=== PATIENT | male | born 1945 | race Caucasian/White ===

== ENCOUNTER → 2016-10-06 | Outpatient (CLI) | payer OTHER | LOC: FIMAGING 15:13 | PROVIDERS: ATTEND Neurological Surgery | DX: M54.9 Dorsalgia, unspecified (principal); M43.17 Spondylolisthesis, lumbosacral region; M51.36 Other intervertebral disc degeneration, lumbar region ==

== ENCOUNTER 2016-12-02 05:50 | Inpatient (IN) | payer OTHER ==
[2016-12-02] MEDS ORDERED: LR 1,000 ML IV ONE (06:39)
[2016-12-02] MEDS ORDERED: LIDOCAINE 1% 5 ML SDV ID PRN (06:39)
[2016-12-02] MEDS ORDERED: THROMBIN (BOVINE) 20,000 UNIT VIAL TP ONE (06:42)
[2016-12-02] MEDS ORDERED: BUPIVACAINE 0.5% 30 ML SDV ONE (06:42)
[2016-12-02] MEDS ORDERED: BACITRACIN 50,000 UNITS/10 ML SYR IRR ONE (06:43)
[2016-12-02] MEDS ORDERED: BUPIVACAINE 0.25% 30 ML SDV ONE (06:46)
[2016-12-02] MEDS ORDERED: BUPIVACAINE/EPI 0.25% 30 ML SDV ONE ×2 (06:46→07:05)
[2016-12-02] MEDS ORDERED: CHLORHEXIDINE GLUC HIBICLENS 118 ML BTL TP ONE (07:00)
[2016-12-02] MEDS ORDERED: ceFAZolin 2 GM/DEXTROSE 100 ML IV ONE (07:00)
[2016-12-02] MEDS ORDERED: morphINE PF 5 MG/10 ML INJ IT ONE (07:00)
[2016-12-02] MEDS ORDERED: PROPOFOL/EMULSION 500 MG/50 ML BOTTLE IV ONE ×2 (07:04→10:05)
[2016-12-02] MEDS ORDERED: fentaNYL 100 MCG/2 ML INJ ONE ×4 (07:04→12:32)
[2016-12-02] MEDS ORDERED: REMIFENTANIL HCL 1 MG VIAL ONE ×2 (07:04→10:04)
[2016-12-02] MEDS ORDERED: PROPOFOL 200 MG/20 ML VIAL ONE (07:07)
[2016-12-02] MEDS ORDERED: LIDOCAINE 2% 100 MG/5 ML SYR ONE (07:11)
[2016-12-02] MEDS ORDERED: MIDAZOLAM 2 MG/2 ML VIAL ONE (07:11)
[2016-12-02] MEDS ORDERED: ROCURONIUM 50 MG/5 ML VIAL ONE ×2 (07:12→08:08)
[2016-12-02] MEDS ORDERED: CITRATE DEXTROSE SOLN 500 ML BAG ONE (07:38)
[2016-12-02] MEDS ORDERED: DEXAMETHASONE 4 MG/ML VIAL ONE (08:32)
[2016-12-02] MEDS ORDERED: ONDANSETRON 4 MG/2 ML VIAL ONE (08:32)
[2016-12-02] MEDS ORDERED: HYDROCODONE PO PRN (09:44)
[2016-12-02] MEDS ORDERED: ACETAMINOPHEN PO PRN (09:44)
[2016-12-02] MEDS ORDERED: ALPRAZolam 0.5 MG TAB PO PRN (09:44)
[2016-12-02] MEDS ORDERED: MAGNESIUM HYDROXIDE 30 ML UDCUP PO PRN (09:45)
[2016-12-02] MEDS ORDERED: LACTULOSE 20 GM/30 ML UDCUP PO PRN (09:45)
[2016-12-02] MEDS ORDERED: NS W/ 20 KCl/L 1,000 ML IV SCH (09:45)
[2016-12-02] MEDS ORDERED: DIAZEPAM 10 MG/2 ML SYR IVP PRN (09:45)
[2016-12-02] MEDS ORDERED: diphenhydrAMINE 25 MG CAP PO PRN (09:45)
[2016-12-02] MEDS ORDERED: ONDANSETRON 4 MG/2 ML VIAL IVP PRN (09:45)
[2016-12-02] MEDS ORDERED: ONDANSETRON DISINTEGRATING 4 MG TAB PO PRN (09:45)
[2016-12-02] MEDS ORDERED: BISACODYL 10 MG SUPP PR PRN (09:45)
[2016-12-02] MEDS ORDERED: NIACIN ER 500 MG TAB.ER PO SCH (10:00)
[2016-12-02] MEDS ORDERED: HYDROCODONE/APAP 5/325 TAB PO PRN (10:05)
[2016-12-02] MEDS ORDERED: ceFAZolin 1 GM VIAL ONE (10:07)
[2016-12-02] MEDS ORDERED: HYDROmorphONE/DILAUDID 1 MG/ML SYR ONE (12:11)
[2016-12-02] MEDS ORDERED: DIAZEPAM 10 MG/2 ML SYR ONE (12:32)
--- NOTE | 2016-12-02 12:45 | POSTOPPROG ---
Post Op Note Date of Operation: 12/02/16 Surgeon: Rudy Hill Aquatic Life Laborer: RADHA Almonte PAC Anesthesia: GET(General Endotracheal) Pre-op Diagnosis: lumbar stenosis, spondylolithesis Post-op Diagnosis: lumbar stenosis, spondylolithesis Indication: lumbar stenosis, spondylolithesis Procedure: L5/S1 ALIF/TLIF Findings: L5/S1 ALIF/TLIF Inf/Abcess present in the surg proc area at time of surgery?: No EBL: Minimal PA Addendum - Addendum .: S: low back pain O: NAD A&Ox3 MAEx4 5/5 and equal in BUE and BLE. Incision c/d/i A/P 71 y/o M L5/S1 ALIF and percutaneous L5/S1 PSF -PT/OT -Post op xrays pending -DVT prophx: TEDs, SCDs, Lovenox okay POD1 -CLD, advance diet per general surgery -Optimize pain management -Please notify NS with any change in neuro/motor exam
--- NOTE | 2016-12-02 13:11 | GOP ---
[f rep st] OPERATIVE REPORT DATE OF OPERATION: 12/02/2016 SURGEON: Rudy Hill MD DECORATING KILN OPERATOR: Irma Almonte, KAITA. ANESTHESIA: General. PREOPERATIVE DIAGNOSIS: 1. Grade 2 spondylolisthesis, L5-S1, with bilateral pars defects. 2. Lower extremity radiculopathy. 3. Low back pain. 4. Treatment refractory to nonoperative intervention. POSTOPERATIVE DIAGNOSIS: 1. Grade 2 spondylolisthesis, L5-S1, with bilateral pars defects. 2. Lower extremity radiculopathy. 3. Low back pain. 4. Treatment refractory to nonoperative intervention. PROCEDURE PERFORMED: 1. Posterior percutaneous pedicle screw fixation of L5 and S1 from the [employer] Sextant 4.75 system. 2. Use of intraoperative 3D Stealth navigation. 3. Use of intraoperative fluoroscopy, less than 1 hour physician time. 4. Use of neuromonitoring. FINDINGS: per imaging SPECIMENS: None. ESTIMATED BLOOD LOSS: 10 mL. INDICATIONS: The patient is a 71-year-old gentleman, who unfortunately suffers from lower extremity radiculopathy with some back pain. He has evidence of grade 2 spondylolisthesis with bilateral pars defects, L5-S1. After failing nonoperative intervention, and after discussion of risks, benefits, and alternatives, we decided to proceed forth with the surgery as described above. Please note, this is stage II of a planned 2-stage surgical procedure. Stage I was completed as an anterior lumbar interbody fusion completed on the same day and dictated in a separate operative report. DESCRIPTION OF PROCEDURE: Patient was still asleep from the completion of stage I of his anterior abdominal approach. At this point, he was flipped prone onto the Sebastien table, and all bony prominences were inspected and padded. The lower lumbar region was prepped and draped in the usual sterile surgical fashion. Another time-out was completed per protocol. The patient received antibiotics within 1 hour of incision. The left posterior superior iliac spine was identified and the small percutaneous pin for the 3D navigation system then placed into the left PSIS. The 3D Stealth navigation system was brought into the field and we completed a 3D Stealth navigation spin. Using 3D Stealth navigation, we used the stealth navigated awl-tip tap to place the jet pilot holes into the bilateral L5 and S1 pedicles, which were cannulated. We then placed 5.5 x 45 mm screws bilaterally at L5, and 6.5 x 50 mm screws bilaterally in S1 from the [employer] Sextant 4.75 system. Another 3D Stealth navigation spin demonstrated good placement of the hardware. We passed two 35 mm rods percutaneously into the heads of the screws between L5 and S1 bilaterally and secured them down with cap screws which were tightened per the livery car driver's setting. AP and lateral x-rays demonstrated good placement of the hardware. There were no noted changes on neuromonitoring throughout the procedure. The patient was flipped supine onto the transport cart, where he was awakened, extubated, and taken to the recovery room in stable condition. There were no complications. COMPLICATIONS: None. /[id number]/MODL MTDD
--- NOTE | 2016-12-02 13:31 | GOP ---
[f rep st] OPERATIVE REPORT DATE OF OPERATION: 12/02/2016 SURGEON: Rudy Hill MD ANESTHESIA: General. PREOPERATIVE DIAGNOSIS: 1. Grade 2 spondylolisthesis L5-S1 with bilateral pars defects. 2. Lower extremity radiculopathy. 3. Treatment refractory to nonoperative intervention. POSTOPERATIVE DIAGNOSIS: 1. Grade 2 spondylolisthesis L5-S1 with bilateral pars defects. 2. Lower extremity radiculopathy. 3. Treatment refractory to nonoperative intervention. PROCEDURE PERFORMED: 1. Anterior arthrodesis with approach to L5-S1. 2. L5-S1 discectomy and interbody fusion using a 14 x 30 x 24 mm, 12 degree perimeter PEEK cage wit h morselized autograft. 3. Anterior lumbar fusion L5-S1 with a large Pivox plate from [employer] with 1 screw into L5 and 1 screw in S1. 4. Use of intraoperative fluoroscopy, less than 1 hour physician time. 5. Use of neuromonitoring. FINDINGS: SPECIMENS: None. ESTIMATED BLOOD LOSS: 15 mL. INDICATIONS: The patient is a very pleasant, 71-year-old gentleman, who unfortunately has been suff ering from lower extremity radiculopathy and some back pain. He had evidence of a grade 2 spondylol isthesis of L5 on S1 with a bilateral pars defect. After failing nonoperative intervention and afte r discussion of the risks, benefits, and treatment alternatives, we decided to proceed forth with ladan hylton as described above. Please note, this is stage 1 of a planned 2-stage surgical procedure. St age 2 will be dictated in a separate operative report and is the posterior spinal fusion. DESCRIPTION OF PROCEDURE: The patient was brought to the operating theater and underwent general en dotracheal anesthesia without complications. Venodyne's, TIANA hose, and appropriate lines were place d by Anesthesia. He was maintained supine on the operating table with his arms extended on the arm boards. All bony processes were inspected and padded. The lower abdomen was then marked by Dr. Isrrael langston' team, giving us the best access to the L5-S1 level. At this point, Dr. Partida will dictate in a separate operative report the anterior abdominal exposure to L5-S1. Our team was then called in. W e confirmed all the levels using lateral fluoroscopy. At this point, we completed an L5-S1 diskecto my and completed a continued distraction of the L5-S1 space to approximately 14 mm. We then prepare d the cartilaginous endplates and measured the interbody space. We placed a 14 x 30 x 24 mm, 12 deg ree perimeter PEEK cage with morselized autograft into the L5-S1 disk space. We then secured a larg e [employer] Pivox plate into the L5 and S1 vertebral bodies. AP and lateral x-rays demonstrated exc ellent placement of the hardware. There were no changes under monitoring. At this point, Dr. Partida ' team will dictate in a separate operative report the abdominal closure. The patient was stable at the completion of this portion of the surgery. CO-SURGEON: Dr. Partida. INSTRUCTIONAL DESIGN SPECIALIST: Irma Almonte PA-C. COMPLICATIONS: None. /[id number]/MODL
--- NOTE | 2016-12-02 13:55 | GOP ---
[f rep st] OPERATIVE REPORT DATE OF OPERATION: 12/02/2016 SURGEON: Pradeep Partida MD LOADING RACK SUPERVISOR: BRANDON Roger. ANESTHESIOLOGIST: Dr. Odonnell. PREOPERATIVE DIAGNOSIS: Spinal instability. POSTOPERATIVE DIAGNOSIS: Spinal instability. PROCEDURE PERFORMED: Anterior exposure L5-S1 for anterior spinal fusion. FINDINGS: significant s[pmdolithesis L5- S1 DESCRIPTION OF PROCEDURE: Patient taken to the operating room, received satisfactory general endotracheal anesthesia by Dr. Odonnell. He was prepped and draped in usual sterile fashion in the supine position. A low Pfannenstiel type incision was made and carried down through the subcutaneous tissue. The rectus fascia was incised. Rectus flaps were elevated above and below the incision from the rectus muscles. The midline was opened between the rectus muscles and the abdomen was entered. Small bowel was packed away. The sacral prominence was identified and the peritoneum over the prominence was opened and incised. The sacral vessels were multiply hemoclipped and divided. Then the L5 -S1 joint was identified. It was exposed extensively laterally above and below. Retraction of the iliac vessels was done with the Omni retractor. After adequate exposure was achieved, the case was turned over to Dr. Hill for anterior fusion. After completion of that, we returned for wound closure. Peritoneum was closed with a running 0 Vicryl suture over the retroperitoneum. The abdominal wall peritoneal layer was closed with a running 0 Vicryl suture and then the fascia was closed with a running #1 PDS suture. The subcu was closed with 3-0 Vicryl and the skin with a 3-0 Monoderm Quill suture. He tolerated the procedure well. Blood loss from our portion of the procedure was negligible. There were no complications. /[id number]/MODL MTDD
[2016-12-02] MEDS: oxyCODONE IR 5 MG TAB PO PRN ×3 (14:53→22:57)
[2016-12-02] MEDS: ACETAMINOPHEN 325 MG TAB PO PRN ×2 (14:54→21:41)
[2016-12-02] MEDS ORDERED: FAMOTIDINE 20 MG/NACL 50 ML IV SCH (21:00)
[2016-12-02] MEDS: SENNOSIDES/DOCUSATE SODIUM TAB PO SCH (21:42)
[2016-12-02] MEDS: DIAZEPAM 5 MG TAB PO PRN (21:43)
[2016-12-02] MEDS: FAMOTIDINE 20 MG TAB PO SCH (21:45)
[2016-12-03] MEDS: traMADol 50 MG TAB PO PRN ×4 (01:47→17:37)
[2016-12-03] MEDS: oxyCODONE IR 5 MG TAB PO PRN ×4 (02:50→18:14)
[2016-12-03] MEDS: DIAZEPAM 5 MG TAB PO PRN ×2 (02:51→21:45)
--- NOTE | 2016-12-03 07:30 | NEUSURGPN ---
Date of Surgery: 12/02/16 Post Op Day: 1 Assessment/Plan: Assessment: 71 y/o M that is s/p L5/S1 ALIF and percutaneous L5/S1 PSF POD #1 Plan: -s/p ALIF and PSF at L5/S1: pt with expected lower back pain and abd pain as well -passing gas -pt with more abd pain than back pain -PT/OT-CPM -Post op xrays pending -will try IV dilaudid and VAN CDL DRIVER requested from RN/Pt -DVT prophx: TEDs, SCDs, Lovenox okay POD1 -CLD, advance diet per general surgery -Optimize pain management -Please notify NS with any change in neuro/motor exam Subjective: Awake and alert. NAD. Eating and drinking. Voiding. No f/c/n/v/d. No campos/cp/ sob/gu complaints. Pt with expected lower back and abd pain. Objective: AAO x 3, PERRLA/EOMI no droop CN 2-12 grossly intact +lt touch 5/5 BUE/BLE = CDI x 2 Neuro Check Frequency: per routine Catheter Insertion Date: 12/02/16 - Physician Discussed Patient with : Sergio Neurosurgery Physical Exam - Vitals, I&O, Labs I and O 12/02/16 12/03/16 12/04/16 05:59 05:59 05:59 Intake Total 2500 Output Total 1225 Balance 1275 Weight 70.76 kg Intake: Oral (ml) 300 IV Intake (ml) 1800 IV Infused (ml) 400 NS W/ 20 KCl/L 1,000 ml @ 350 75 mls/hr IV CONT MARIA DE JESUS Rx #:[id number] ceFAZolin 1 GM/DEXTROSE 50 50 ml @ 200 mls/hr IV Q8HRS MARIA DE JESUS Rx#:[id number] Output: Urine (ml) 1200 Catheter 1200 Estimated Blood Loss (ml) 25 Vital Signs Temp Pulse Resp BP Pulse Ox 36.4 C 73 16 134/75 H 100 12/03/16 04:45 12/03/16 04:45 12/03/16 04:45 12/03/16 04:45 12/03/16 04:45 ICD10 Worksheet Patient Problems: Problems Problem Status Onset Arthrodesis status Acute Lumbar stenosis Acute - ICD10 Problem Qualifiers (1) Lumbar stenosis (2) Arthrodesis status
[2016-12-03] MEDS ORDERED: HYDROmorphONE/DILAUDID 1 MG/ML SYR IVP PRN (07:31)
[2016-12-03] MEDS ORDERED: HYDROmorphONE/DILAUDID 6 MG/30 ML PCA IV PRN (07:32)
[2016-12-03] MEDS ORDERED: HYDROmorphONE/DILAUDID 2 MG TAB PO PRN (07:32)
[2016-12-03] MEDS ORDERED: NALOXONE HCL 0.4 MG/ML INJ IVP PRN (07:32)
[2016-12-03] MEDS: ACETAMINOPHEN 325 MG TAB PO PRN ×2 (08:08→15:57)
[2016-12-03] MEDS: METHOCARBAMOL 750 MG TAB PO PRN ×2 (08:08→15:57)
[2016-12-03] MEDS ORDERED: NON-FORMULARY NEW DRUG (Nebivolol Hcl [Bystolic] 2.5 MG) PO SCH (09:00)
[2016-12-03] MEDS: ATORVASTATIN CALCIUM 20 MG TAB PO SCH (09:48)
[2016-12-03] MEDS: FAMOTIDINE 20 MG TAB PO SCH ×3 (09:48→21:45)
[2016-12-03] MEDS: LISINOPRIL 2.5 MG TAB PO SCH (09:48)
[2016-12-03] MEDS: NEBIVOLOL HCL 5 MG TAB PO SCH (09:48)
[2016-12-03] MEDS: VITAMIN B COMPLEX 1 EA CAP/TAB PO SCH (09:49)
[2016-12-03] MEDS: SENNOSIDES/DOCUSATE SODIUM TAB PO SCH ×2 (09:49→20:28)
[2016-12-03] MEDS: CARISOPRODOL PO SCH (10:50)
[2016-12-03] MEDS: ENOXAPARIN 40 MG/0.4 ML SYR SC SCH (13:30)
[2016-12-03] MEDS: POLYETHYLENE GLYCOL 3350 17 GM PKT PO PRN ×2 (17:37→21:45)
[2016-12-04] MEDS ORDERED: HYDROmorphONE/DILAUDID 2 MG TAB PO PRN (09:38)
[2016-12-04] MEDS: ATORVASTATIN CALCIUM 20 MG TAB PO SCH (10:20)
[2016-12-04] MEDS: CARISOPRODOL PO SCH (10:20)
[2016-12-04] MEDS: ENOXAPARIN 40 MG/0.4 ML SYR SC SCH (10:21)
[2016-12-04] MEDS: FAMOTIDINE 20 MG TAB PO SCH ×2 (10:21→21:13)
[2016-12-04] MEDS: SENNOSIDES/DOCUSATE SODIUM TAB PO SCH ×2 (10:21→21:13)
[2016-12-04] MEDS: VITAMIN B COMPLEX 1 EA CAP/TAB PO SCH (10:21)
[2016-12-04] MEDS: METHOCARBAMOL 750 MG TAB PO PRN ×3 (10:22→23:55)
[2016-12-04] MEDS: ACETAMINOPHEN 325 MG TAB PO PRN ×3 (10:22→23:54)
[2016-12-04] MEDS: NEBIVOLOL HCL 5 MG TAB PO SCH (10:23)
[2016-12-04] MEDS: LISINOPRIL 2.5 MG TAB PO SCH (10:23)
[2016-12-04] MEDS: oxyCODONE IR 5 MG TAB PO PRN ×3 (13:36→23:16)
--- NOTE | 2016-12-04 14:35 | NEUSURGPN ---
Assessment/Plan: Assessment: 71 y/o M that is s/p L5/S1 ALIF and percutaneous L5/S1 PSF POD #2 Plan: -s/p ALIF and PSF at L5/S1: pt with expected lower back pain and abd pain as well- complaining mostly of abdominal pain. -HAd Bowel movement this morning and gen surg has advanced diet -PT/OT-CPM -Post op xrays show good hardware placement -will try and get off of RUBBING BED OPERATOR and try oral dilaudid instead -DVT prophx: TEDs, SCDs, Lovenox -Diet per gen surg -Please notify NS with any change in neuro/motor exam -Dispo planning- Mon vs tues once pain controlled and clears therapies Subjective: Patient states he has more abdominal pain than back pain still. Pain better controlled over night with RUBBING BED OPERATOR/dilaudid. Had +BM this morning. Leg pain from prior to surgery is better. Numbness improved. Objective: AAO x 3, PERRLA/EOMI CN 2-12 grossly intact +lt touch 5/5 BUE/BLE = CDI x 2 Catheter Insertion Date: 12/02/16 - Physician Discussed Patient with : Sergio Neurosurgery Physical Exam - Vitals, I&O, Labs I and O 12/03/16 12/04/16 12/05/16 05:59 05:59 05:59 Intake Total 2500 1375 750 Output Total 1225 600 100 Balance 1275 775 650 Weight 70.76 kg Intake: Oral (ml) 300 1375 750 IV Intake (ml) 1800 IV Infused (ml) 400 NS W/ 20 KCl/L 1,000 ml @ 350 75 mls/hr IV CONT MARIA DE JESUS Rx #:[id number] ceFAZolin 1 GM/DEXTROSE 50 50 ml @ 200 mls/hr IV Q8HRS MARIA DE JESUS Rx#:[id number] Output: Urine (ml) 1200 600 100 Bedside Commode 300 Catheter 1200 Toilet 100 Urinal 300 Estimated Blood Loss (ml) 25 Other: Intake Quantity Yes Sufficient Number of Voids Bedside Commode 1 Toilet 1 Urinal 1 Number of Stools Toilet 2 Vital Signs Temp Pulse Resp BP Pulse Ox 36.8 C 78 14 113/71 93 12/04/16 11:23 12/04/16 11:23 12/04/16 11:23 12/04/16 11:23 12/04/16 11:23 ICD10 Worksheet Patient Problems: Problems Problem Status Onset Arthrodesis status Acute Lumbar stenosis Acute
[2016-12-04] MEDS: DIAZEPAM 5 MG TAB PO PRN (21:12)
[2016-12-05] MEDS: oxyCODONE IR 5 MG TAB PO PRN ×4 (03:30→22:48)
[2016-12-05] MEDS: ACETAMINOPHEN 325 MG TAB PO PRN ×2 (05:51→19:10)
[2016-12-05] MEDS: METHOCARBAMOL 750 MG TAB PO PRN ×2 (05:52→13:55)
--- NOTE | 2016-12-05 07:49 | NEUSURGPN ---
Assessment/Plan: Assessment: 71 y/o M that is s/p L5/S1 ALIF and percutaneous L5/S1 PSF POD #3 Plan: -s/p ALIF and PSF at L5/S1: pt with expected lower back pain and abd pain as well- complaining mostly of abdominal pain. Had a lot of abdominal pain overnight. -Has had bowel movement and gen surg has advanced diet -PT/OT-CPM -Post op xrays show good hardware placement -Pain management- cont current regimen -DVT prophx: TEDs, SCDs, Lovenox -Diet per gen surg -Please notify NS with any change in neuro/motor exam -Dispo planning- Today vs tomorrow once pain controlled and clears therapies Subjective: Pt resting in bed, c/o abdominal pain overnight that was severe. Concerned about going home today and having problems overnight. Objective: AAOx3 NAD VSS MAEx4 Motor 5/5 BLE abdominal and posterior lumbar incisions cdi +LT Urinary Catheter in Place: No Catheter Insertion Date: 12/02/16 - Physician Discussed Patient with : Sergio Patient Seen by : Sergio Neurosurgery Physical Exam - Vitals, I&O, Labs I and O 12/04/16 12/05/16 12/06/16 05:59 05:59 05:59 Intake Total 1375 1830 Output Total 600 500 Balance 775 1330 Intake: Oral (ml) 1375 1830 Output: Urine (ml) 600 500 Bedside Commode 300 Toilet 500 Urinal 300 Other: Intake Quantity Yes Yes Sufficient Number of Voids Bedside Commode 1 Toilet 2 Urinal 1 Number of Stools Toilet 2 Vital Signs Temp Pulse Resp BP Pulse Ox 36.9 C 81 12 129/72 H 90 L 12/05/16 07:44 12/05/16 07:44 12/05/16 07:44 12/05/16 07:44 12/05/16 07:44 ICD10 Worksheet Patient Problems: Problems Problem Status Onset Arthrodesis status Acute Lumbar stenosis Acute
[2016-12-05] MEDS: ENOXAPARIN 40 MG/0.4 ML SYR SC SCH (09:55)
[2016-12-05] MEDS: ATORVASTATIN CALCIUM 20 MG TAB PO SCH (09:55)
[2016-12-05] MEDS: VITAMIN B COMPLEX 1 EA CAP/TAB PO SCH ×2 (09:56→10:01)
[2016-12-05] MEDS: LISINOPRIL 2.5 MG TAB PO SCH (09:56)
[2016-12-05] MEDS: NEBIVOLOL HCL 5 MG TAB PO SCH (09:56)
[2016-12-05] MEDS: CARISOPRODOL PO SCH (09:56)
[2016-12-05] MEDS: FAMOTIDINE 20 MG TAB PO SCH (09:56)
[2016-12-05] MEDS: SENNOSIDES/DOCUSATE SODIUM TAB PO SCH (09:57)
[2016-12-05 16:38] LABS: HEMATOCRIT 31.2 % (40.0-51.0); HEMOGLOBIN 11.3 g/dL (13.7-17.5); MEAN CELL HEMOGLOBIN 31.1 pg (27.9-34.1); MEAN CELL HEMOGLOBIN CONCENTR. 36.2 g/dL (32.4-36.7); RED BLOOD CELL COUNT 3.63 10^6/uL (4.40-6.38); RED CELL DISTRIBUTION WIDTH 11.7 % (11.5-15.2)
[2016-12-05 18:02] LABS: ANION GAP 5 mEq/L (8-16); CALCIUM 8.2 mg/dL (8.5-10.4); CARBON DIOXIDE 25 mEq/l (22-31); CHLORIDE 95 mEq/L (97-110); CREATININE 0.6 mg/dL (0.7-1.3); GLOMERULAR FILTRATION RATE > 60; GLUCOSE 124 mg/dL (70-100); POTASSIUM 4.6 mEq/L (3.5-5.2); SODIUM 125 mEq/L (134-144)
[2016-12-05] MEDS: DIAZEPAM 5 MG TAB PO PRN (20:43)
[2016-12-05] MEDS: morphINE SR 15 MG TAB PO SCH (20:44)
[2016-12-06] MEDS: METHOCARBAMOL 750 MG TAB PO PRN (02:26)
[2016-12-06] MEDS: ACETAMINOPHEN 325 MG TAB PO PRN ×4 (02:26→16:42)
[2016-12-06] MEDS: FAMOTIDINE 20 MG TAB PO SCH ×3 (02:27→20:26)
[2016-12-06] MEDS: SENNOSIDES/DOCUSATE SODIUM TAB PO SCH ×3 (04:50→21:21)
[2016-12-06] MEDS: oxyCODONE IR 5 MG TAB PO PRN ×3 (06:11→16:43)
--- NOTE | 2016-12-06 07:18 | NEUSURGPN ---
Assessment/Plan: Assessment: 71 y/o M that is s/p L5/S1 ALIF and percutaneous L5/S1 PSF POD #4 Plan: -s/p ALIF and PSF at L5/S1: pt with expected lower back pain and abd pain as well- complaining mostly of abdominal pain. Not eating much, not a lot of solid stool with BMs. -Has had bowel movement and gen surg has advanced diet -PT/OT-CPM -Post op xrays show good hardware placement -Pain management- cont current regimen, doing better with MS contin added before bed -Na 125 - free water restricted, encourage gatorade etc. Salt tabs added. Re- check at noon. -DVT prophx: TEDs, SCDs, Lovenox -Diet per gen surg -Please notify NS with any change in neuro/motor exam -Dispo planning- Today vs tomorrow once eating better and Na improved. Subjective: Pt resting in bed, states he has no appetite. Was able to sleep well overnight. Objective: AAOx3 NAD VSS MAEx4 Motor 5/5 BLE A/P incisions dressed cdi +LT Urinary Catheter in Place: No Catheter Insertion Date: 12/02/16 - Physician Discussed Patient with : Sergio Neurosurgery Physical Exam - Vitals, I&O, Labs I and O 12/05/16 12/06/16 12/07/16 05:59 05:59 05:59 Intake Total 1830 1250 Output Total 500 1550 Balance 1330 -300 Intake: Oral (ml) 1830 1250 Output: Urine (ml) 500 1550 Toilet 500 1350 Urinal 200 Other: Intake Quantity Yes Sufficient Number of Voids Toilet 2 2 Urinal 1 Number of Stools Toilet 2 1 Vital Signs Temp Pulse Resp BP Pulse Ox 36.9 C 71 16 96/58 L 91 L 12/05/16 23:49 12/05/16 23:49 12/05/16 23:49 12/05/16 23:49 12/05/16 23:49 Laboratory Results 12/05/16 16:30 12/05/16 16:30 ICD10 Worksheet Patient Problems: Problems Problem Status Onset Arthrodesis status Acute Lumbar stenosis Acute
[2016-12-06] MEDS: ATORVASTATIN CALCIUM 20 MG TAB PO SCH (09:16)
[2016-12-06] MEDS: NEBIVOLOL HCL 5 MG TAB PO SCH (09:17)
[2016-12-06] MEDS: LISINOPRIL 2.5 MG TAB PO SCH (09:26)
[2016-12-06] MEDS: CARISOPRODOL PO SCH (09:33)
[2016-12-06] MEDS: VITAMIN B COMPLEX 1 EA CAP/TAB PO SCH (09:36)
[2016-12-06] MEDS: SODIUM CHLORIDE 1,000 MG TAB PO SCH ×2 (10:37→19:21)
[2016-12-06] MEDS: ENOXAPARIN 40 MG/0.4 ML SYR SC SCH (10:37)
[2016-12-06] MEDS: POLYETHYLENE GLYCOL 3350 17 GM PKT PO PRN (12:52)
--- NOTE | 2016-12-06 14:12 | SOAPPROG ---
SOAP Progress Note Assessment/Plan: Assessment/Plan: 71 Y M s/p abdominal exposure for anterior spine surgery. POD# 4. Bowel protocol already ordered. Recommend that he get miralax today. Also, fleets enema which patient is amenable to. Seen and examined with Dr. Partida. S: c/o constipation. Had two very small pieces of stool. Had some soft fecal drainage but denies diarrhea. O: gen: alert, nad abd: soft, inc cdi, no erythema. 12/06/16 14:09 Objective: Vital Signs Temp Pulse Resp BP Pulse Ox 36.7 C 93 14 104/71 92 12/06/16 07:42 12/06/16 09:17 12/06/16 07:42 12/06/16 09:17 12/06/16 07:42 Laboratory Results 12/05/16 16:30 12/06/16 12:12 12/05/16 12/06/16 12/07/16 05:59 05:59 05:59 Intake Total 1830 1250 Output Total 500 1550 Balance 1330 -300 ICD10 Worksheet Patient Problems: Problems Problem Status Onset Arthrodesis status Acute Lumbar stenosis Acute
[2016-12-06] MEDS: morphINE SR 15 MG TAB PO SCH (20:21)
[2016-12-07] MEDS: METHOCARBAMOL 750 MG TAB PO PRN (03:01)
[2016-12-07] MEDS: oxyCODONE IR 5 MG TAB PO PRN ×2 (03:01→07:57)
[2016-12-07] MEDS ORDERED: PREPARATION H 51 GM CRTUBE PR PRN (05:55)
[2016-12-07 07:22] VITALS: RESP 15; TEMP 98.1; O2SAT 96
[2016-12-07] MEDS: SENNOSIDES/DOCUSATE SODIUM TAB PO SCH (07:57)
[2016-12-07] MEDS: VITAMIN B COMPLEX 1 EA CAP/TAB PO SCH (07:57)
[2016-12-07] MEDS: ENOXAPARIN 40 MG/0.4 ML SYR SC SCH (07:57)
[2016-12-07] MEDS: LISINOPRIL 2.5 MG TAB PO SCH (07:57)
[2016-12-07] MEDS: SODIUM CHLORIDE 1,000 MG TAB PO SCH (07:57)
--- NOTE | 2016-12-07 07:57 | SOAPPROG ---
SOAP Progress Note Assessment/Plan: Assessment: Hyponatremia to 125 (now 133) in the setting of lumbar fusion requiring free water restriction, salt tabs & repeat lab draws. 71 y/o M that is s/p L5/S1 ALIF and percutaneous L5/S1 PSF POD #5 Plan: -s/p ALIF and PSF at L5/S1: pt with expected lower back pain and abd pain as well- complaining mostly of abdominal pain. Not eating much, not a lot of solid stool with BMs. -Has had bowel movement and gen surg has advanced diet -PT/OT-CPM -Post op xrays show good hardware placement -Pain management- cont current regimen, doing better with MS contin added before bed -Na 133 - free water restricted, encourage gatorade etc. Salt tabs added. -DVT prophx: TEDs, SCDs, Lovenox -Diet per gen surg -Please notify NS with any change in neuro/motor exam -Dispo planning Subjective: Subjective: out of bed, pain well controlled. feeling better today. Small BM this AM Objective: AAOx3 NAD VSS MAEx4 Motor 5/5 BLE A/P incisions dressed cdi +LT Objective: Vital Signs Temp Pulse Resp BP Pulse Ox 36.7 C 76 15 116/66 96 12/07/16 07:18 12/07/16 07:18 12/07/16 07:18 12/07/16 07:18 12/07/16 07:18 Laboratory Results 12/05/16 16:30 12/06/16 12:12 12/06/16 12/07/16 12/08/16 05:59 05:59 05:59 Intake Total 1250 1000 Output Total 1550 Balance -300 1000 ICD10 Worksheet Patient Problems: Problems Problem Status Onset Arthrodesis status Acute Lumbar stenosis Acute
[2016-12-07] MEDS: FAMOTIDINE 20 MG TAB PO SCH (07:58)
[2016-12-07] MEDS: NEBIVOLOL HCL 5 MG TAB PO SCH (07:58)
[2016-12-07] MEDS: ATORVASTATIN CALCIUM 20 MG TAB PO SCH (08:00)
[2016-12-07 08:05] VITALS: BP 134/73; PULSE 82
[2016-12-07] MEDS: CARISOPRODOL PO SCH (08:53)
[2016-12-07] MEDS: ACETAMINOPHEN 325 MG TAB PO PRN (09:14)
== END 2016-12-07 10:56 | disposition home or self-care (01) | DRG 460 ==
LOC: F3N 05:50
PROVIDERS: ADMIT Neurological Surgery; ATTEND Neurological Surgery
DX: M43.17 Spondylolisthesis, lumbosacral region (principal); M54.17 Radiculopathy, lumbosacral region; E87.1 Hypo-osmolality and hyponatremia; K59.00 Constipation, unspecified; I10 Essential (primary) hypertension; I25.10 Atherosclerotic heart disease of native coronary artery without angina pectoris; Z95.5 Presence of coronary angioplasty implant and graft
CPT/HCPCS: 97116-GP; 97161-GP; 97165-GO; 97530-GP; 97535-GO; C1713; C1762; C1769; G8978-GP-CK; G8979-GP-CI; G8980-GP-CI; G8987-GO-CJ; G8988-GO-CI; J0690; J1100; J1170; J1650; J2001; J2250; J2405; J2704; J3010; J7060

== ENCOUNTER 2017-01-01 13:12 | Inpatient (IN) | payer OTHER ==
--- NOTE | 2017-01-01 14:21 | EDPHY ---
H & P Time Seen by Provider: 01/01/17 14:18 HPI/ROS: CHIEF COMPLAINT: Bleeding from surgical site. HISTORY OF PRESENT ILLNESS: The patient is a 71-year-old male that had a spinal fusion L5-S1 with anterior exposure performed 12/02/16, who presents with bleeding from the abdominal surgical site. The patient states he developed a fever once, about 1 week ago. Over the past week the wound has become erythematous. 2 days ago the site began to swell. This morning while sitting at the table, the wound began to bleed. The patient spoke to the Neurosurgeon PA for concern of infection. He denies fever. REVIEW OF SYSTEMS: A comprehensive 10 point review of systems is otherwise negative aside from elements mentioned in the history of present illness. Past Medical/Surgical History: Hypertension, Hyperlipidemia, Anxiety PSH: Spinal fusion 12/02/16, Cardiac stents x6, Ablation Social History: Lives at home alone. Has 3 sons that live in the area. Smoking Status: Never smoked Physical Exam: General Appearance: Alert, pleasant Eyes: Pupils equal and round, no conjunctival pallor or injection ENT, Mouth: Mucous membranes moist Neck: Normal inspection Respiratory: Lungs are clear to auscultation Cardiovascular: Regular rate and rhythm Gastrointestinal: [id number] area of firm swelling over the surgical incision with surrounding erythema. Neurological: A&O, nonfocal, normal gait Skin: Warm and dry, no rash Extremities: Nontender, no pedal edema Psychiatric: Mood and affect normal Constitutional: Initial Vital Signs Temperature (C) 36.8 C 01/01/17 13:28 Heart Rate 85 01/01/17 13:28 Respiratory Rate 16 01/01/17 13:28 Blood Pressure 116/66 01/01/17 13:28 O2 Sat (%) 95 01/01/17 13:28 O2 Delivery Mode Room Air Allergies/Adverse Reactions: No Known Allergies Allergy (Verified 01/01/17 13:26) Home Medications: Medication Instructions Recorded Atorvastatin Calcium [Lipitor 20 20 mg PO DAILY 11/03/16 mg (*)] Lisinopril [Zestril 2.5 mg (*)] 2.5 mg PO DAILY 11/03/16 Vitamin B Complex [B Complex] 1 each PO DAILY 11/03/16 oxyCODONE IR [Oxycodone Ir (*)] 5 - 10 mg PO Q4HRS PRN #90 tab 12/06/16 Bystolic 01/01/17 Lipitor 01/01/17 Medical Decision Making ED Course/Re-evaluation: Patient with spinal fusion L5S1 with anterior exposure 12/02/16 presents with a large and possibly infected hematoma to the surgical site. Dr. Amos castaneda. 1445: Dr. Lerma, General surgery is in the ED evaluating the patient. I and D performed by Dr. Trinidad. Ancef 1 g IV given. Patient will be admitted to [facility] for observation. Differential Diagnosis: Differential diagnosis includes though it is not limited to appendicitis, cholecystitis, diverticulitis, pyelonephritis, bowel perforation, small bowel obstruction. - Data Points Medications Given: Discontinued Medications Cefazolin Sodium/Dextrose (Ancef 1 Gm (Premix)) 50 mls @ 200 mls/hr IV EDNOW ONE PRN Reason: Protocol Stop: 01/01/17 14:48 Last Admin: 01/01/17 15:10 Dose: 50 mls Morphine Sulfate (Morphine) 4 mg IVP EDNOW ONE Stop: 01/01/17 15:11 Last Admin: 01/01/17 15:13 Dose: 4 mg Departure - Departure Disposition: [facility] Inpatient Acute Clinical Impression: Postoperative wound hematoma Condition: Fair Referrals: Elisabeth Pickens MD [Primary Care Provider] - As per Instructions Report Scribed for: Marizol Romero Report Scribed by: Vanesa العلي Date of Report: 01/01/17 Time of Report: 14:30 Physician Review and Approval Statement: 01/01/17 14:30 Portions of this note were transcribed by a director of medical services. I personally performed the history, physical exam, and medical decision-making; and confirmed the accuracy of the information in the transcribed note.
[2017-01-01] MEDS ORDERED: ACETAMN/DIPHENHYDRAMINE 500/25MG TAB PO PRN (15:11)
[2017-01-01 15:14] LABS: % IMMATURE GRANULYOCYTES 0.6 % (0.0-1.1); ABSOLUTE IMMATURE GRANULOCYTES 0.07 10^3/uL (0.00-0.10); ADD DIFF? NO; ADD MORPH? NO; ADD SCAN? NO; ATYPICAL LYMPHOCYTE FLAG 10 (0-99); FRAGMENT RBC FLAG 0 (0-99); HEMATOCRIT 38.2 % (40.0-51.0); HEMOGLOBIN 12.7 g/dL (13.7-17.5); LEFT SHIFT FLG 0 (0-99); LIPEMIA HEMOLYSIS FLAG 80 (0-99); MEAN CELL HEMOGLOBIN 30.1 pg (27.9-34.1); MEAN CELL HEMOGLOBIN CONCENTR. 33.2 g/dL (32.4-36.7); MEAN CELL VOLUME 90.5 fL (81.5-99.8); PLATELET CLUMPS FLAG 10 (0-99); PLATELET COUNT 366 10^3/uL (150-400); RED BLOOD CELL COUNT 4.22 10^6/uL (4.40-6.38); RED CELL DISTRIBUTION WIDTH 12.4 % (11.5-15.2)
[2017-01-01 16:14] LABS: ANION GAP 9 mEq/L (8-16); CALCIUM 8.7 mg/dL (8.5-10.4); CARBON DIOXIDE 27 mEq/l (22-31); CHLORIDE 99 mEq/L (97-110); CREATININE 0.7 mg/dL (0.7-1.3); GLOMERULAR FILTRATION RATE > 60; GLUCOSE 107 mg/dL (70-100); POTASSIUM 4.6 mEq/L (3.5-5.2); SODIUM 135 mEq/L (134-144)
[2017-01-01] MEDS: oxyCODONE IR 5 MG TAB PO PRN ×3 (17:02→23:41)
[2017-01-01] MEDS: VANCOMYCIN HCL/NORMAL SALINE 250 ML IV SCH (17:29)
[2017-01-01] MEDS ORDERED: ZOLPIDEM TARTRATE 5 MG TAB PO PRN (19:19)
[2017-01-01] MEDS: PIPERACILLIN/TAZO 3.375 GM/DEX 50 ML IV SCH ×2 (19:36→23:42)
--- NOTE | 2017-01-01 20:32 | GHP ---
[f rep st] HISTORY AND PHYSICAL DATE OF ADMISSION: 01/01/2017 CHIEF COMPLAINT: Leaking from abdominal wound. HISTORY OF PRESENT ILLNESS: The patient is a 71-year-old man who was taken to the operating room on December 02, 2016, for L5-S1 ALIF/TLIF. He was doing well. Approximately 1 week ago, he developed a fever to 103, but it did not recur. He called in again more recently and reported that his midline wound was more purple in color and tense. Today, it leaked fluid, and he presented to the emergency room. He is having normal bowel movement. He denies chills. Other than the fever a week ago, he has not had fevers. He does not have malaise. He reports that sensation is coming back in his leg, and he is pleased with his surgery. PAST MEDICAL HISTORY: Includes hypertension, hyperlipidemia. PAST SURGICAL HISTORY: Includes the recent back surgery, cardiac stents x6 and cardiac ablation. SOCIAL HISTORY: He is a nonsmoker. He lives at home alone. He has 3 sons. FAMILY HISTORY: Noncontributory. REVIEW OF SYSTEMS: Ten-point review of systems negative except for HPI. PHYSICAL EXAMINATION: VITALS: 36.8, 85, 116/66, 16, 95% room air. GENERAL: Pleasant, well-nourished, well-developed man, lying on a gurney. Son at bedside. HEENT: Normocephalic. No gross hearing deficit. Mucous membranes moist. Pupils equal and round. No scleral icterus. NECK: No cervical lymphadenopathy. LUNGS: Clear to auscultation bilaterally. No increased work of breathing. CARDIAC: Regular rate. ABDOMEN: Soft. He does have a large violaceous area around the incision. It is leaking old heme. It is not warm to the touch. There is no foul odor. MUSCULOSKELETAL: Moves all extremities well. SKIN: Warm and dry, as above. NEURO: Grossly intact. PSYCH: Mood and affect normal/slightly anxious. PROCEDURE PERFORMED: I verbally consented the patient. A time-out was performed. I prepped his abdomen with Betadine. I draped it with towels. I infiltrated the area with 5 cc of 1% lidocaine. I opened the incision. I evacuated old hematoma. I sent some fluid for culture. I irrigated the wound with 50 cc of fluid. I packed it with Kerlix and placed an ABD over the wound. It appeared to be superficial. IMPRESSION AND PLAN: The patient is a 71-year-old, status post anterior lumbar interbody fusion/transforaminal lumbar interbody fusion with a hematoma. Due to his history of a fever, we have obtained laboratory work and a culture of the fluid. I suspect that he has a low-grade infection of the hematoma. It is now evacuated. I will change the dressing tomorrow likely with Hydrofera Blue. He may ultimately need a wound VAC. If there is systemic clinical concern, we may end up doing a CT scan to make sure there is no deep infection. At this time, I do not believe that there will be. For his hypertension, he will resume his home meds, lisinopril. He will continue his Bystolic. For his hyperlipidemia, he will continue his lovastatin. He can either bring in Lunesta for his insomnia, or I have ordered Tylenol PM. We will hold his multivitamin while he is in the hospital. I have placed him on Zosyn and vancomycin. We will narrow the antibiotics as appropriate. I am hoping we can discharge him with oral antibiotic. He understands that this wound will need to heal by secondary intention. /[id number]/MODL MTDD
[2017-01-02] MEDS: VANCOMYCIN HCL/NORMAL SALINE 250 ML IV SCH ×2 (04:25→17:01)
[2017-01-02 05:12] LABS: % IMMATURE GRANULYOCYTES 0.4 % (0.0-1.1); ABSOLUTE IMMATURE GRANULOCYTES 0.04 10^3/uL (0.00-0.10); ADD DIFF? NO; ADD MORPH? NO; ADD SCAN? NO; ATYPICAL LYMPHOCYTE FLAG 0 (0-99); FRAGMENT RBC FLAG 0 (0-99); HEMATOCRIT 34.5 % (40.0-51.0); HEMOGLOBIN 11.5 g/dL (13.7-17.5); LEFT SHIFT FLG 10 (0-99); LIPEMIA HEMOLYSIS FLAG 80 (0-99); MEAN CELL HEMOGLOBIN 30.3 pg (27.9-34.1); MEAN CELL HEMOGLOBIN CONCENTR. 33.3 g/dL (32.4-36.7); MEAN CELL VOLUME 90.8 fL (81.5-99.8); MEAN PLATELET VOLUME 9.3 fL (8.7-11.7); PLATELET CLUMPS FLAG 0 (0-99); PLATELET COUNT 316 10^3/uL (150-400); RED CELL DISTRIBUTION WIDTH 12.3 % (11.5-15.2)
[2017-01-02 05:17] LABS: ANION GAP 6 mEq/L (8-16); CALCIUM 8.7 mg/dL (8.5-10.4); CARBON DIOXIDE 26 mEq/l (22-31); CHLORIDE 100 mEq/L (97-110); CREATININE 0.6 mg/dL (0.7-1.3); GLOMERULAR FILTRATION RATE > 60; GLUCOSE 97 mg/dL (70-100); POTASSIUM 4.8 mEq/L (3.5-5.2); SODIUM 132 mEq/L (134-144)
[2017-01-02] MEDS: PIPERACILLIN/TAZO 3.375 GM/DEX 50 ML IV SCH ×3 (05:53→18:07)
[2017-01-02] MEDS: NEBIVOLOL HCL 5 MG TAB PO SCH (07:46)
[2017-01-02] MEDS: ATORVASTATIN CALCIUM 20 MG TAB PO SCH (07:46)
[2017-01-02] MEDS: LISINOPRIL 5 MG TAB PO SCH (07:47)
[2017-01-02] MEDS: oxyCODONE IR 5 MG TAB PO PRN ×3 (08:50→18:15)
--- NOTE | 2017-01-02 10:54 | GCON ---
[f rep st] CONSULTATION NEUROSURGICAL CONSULTATION CHIEF COMPLAINT: Abdominal wound drainage. HISTORY OF PRESENT ILLNESS: This is a 71-year-old male who underwent an anterior lumbar interbody f usion and posterior lumbar fusion on December 02, 2016, and was doing very well. He has no leg pain wh atsoever which had resolved after surgery. He had some occasional back pain but is mild. He states approximately a week ago he had noticed he developed a fever but this went away and there was appar ently some purpura in the inferior portion of the midline abdominal wound and he called again, kina chavez that it was more tense and purple and on day of admission, which was yesterday, it leaked fluid a nd he presented to the emergency department. He was having normal bowel movements. Denied chills. Other than the fever a week ago, had not had any fevers or chills, no malaise, and was very pleased otherwise. He was seen by Julia Lerma MD and a hematoma that appeared to be a superficial hematom a infection was drained and sent for Gram stain, which showed gram-positive cocci, and she is kermit chavez this. She packed the wound. He denies any significant leg pain. He says sensation is returning to his leg that he had some preoperative numbness and his back pain is a little bit while he is in the hospital but he thinks this is secondary to the bed that he is in. He denies any other complain ts at this point in time. PAST MEDICAL HISTORY: Includes hypertension, hyperlipidemia. PAST SURGICAL HISTORY: Includes the L5-S1 ALIF, TLIF, 6 cardiac stents, and a cardiac ablation. SOCIAL HISTORY: He is a nonsmoker. Lives at home alone. Has 3 sons. FAMILY HISTORY: Noncontributory. ALLERGIES: He has no known drug allergies. HOME MEDICATIONS: 1. Centrum. 2. Vitamin D3. 3. Glucosamine. 4. Bystolic. 5. . 6. Zestril. 7. Lipitor. 8. Oxycodone. 9. B complex. 10. He is currently on Zosyn and vancomycin after the wound drainage. REVIEW OF SYSTEMS: Complete 10 system review of systems performed by myself was negative except as stated above. PHYSICAL EXAM: VITAL SIGNS: Blood pressure is 126/77, heart rate is 76, respiratory rate is 16, sa tting 95% on room air. Temp is 36.9 degrees Celsius with a T-max of 37.7. GENERAL: He is alert an d oriented x3. HEENT: Pupils are equal, round, reactive to light and accommodation. External ocul ar muscles are intact. No facial asymmetry. Tongue deviation. Sensation intact V1, V2, V3 distrib utions cranial nerve V bilaterally. Strength is 5/5 to bilateral deltoids, biceps, triceps, wrist f lexors, wrist extensors, hand intrinsics, iliopsoas, quadriceps, hamstrings, dorsiflexors, plantar f lexors, EHLs. Lumbar incision is clean, dry, intact and flat. There is no erythema or purpura. Th e abdominal incision has packing and a dressing. LABORATORY DATA: Initial white blood cell count was 12.52, today it is 9.4, hemoglobin 11.5, hemato crit 34.5, platelets are 316. Gram stain revealed 1+ gram-positive cocci. Cultures are pending. IMPRESSION AND PLAN: This is a 71-year-old male who is approximately 3-4 weeks status post anterior posterior lumbar fusion who has what appears to be a superficial infected abdominal hematoma which has been drained and he is currently on antibiotics. At this point in time, I have no concern for h im having any infection in his hardware and he is doing very well from a neurosurgical perspective. Would defer to General Surgery as regards wound care for the abdominal incision and ID for antibiot ics. We will continue follow him. He should follow up with Dr. Hill as scheduled in approximatel y 2 weeks with x-rays and we certainly appreciate General Surgery managing this abdominal wound. Pl ease call with any changes in neurologic status. /[id number]/MODL
--- NOTE | 2017-01-02 17:08 | SOAPPROG ---
SOAP Progress Note Assessment/Plan: Assessment: HD # 2 for infected hematoma -drained -on Zosyn and Vanc -cultures thus far with group C/G strep. Can discharge home on Augmentin X 10 days -hydrofera blue changed on 01/02/2017. Home care and change two times per week Hypertension - home meds Hyperlipidemia - home meds Disposition - will stay greater than 2 midnights due to infected hematoma. Awaiting cultures. Likely home in am S: Feeling better than last evening Plan: 01/02/17 17:05 Objective: Vital Signs Temp Pulse Resp BP Pulse Ox 36.9 C 69 17 101/61 93 01/02/17 15:33 01/02/17 15:33 01/02/17 15:33 01/02/17 15:33 01/02/17 15:33 Laboratory Results 01/02/17 04:24 01/02/17 04:24 01/01/17 01/02/17 01/03/17 05:59 05:59 05:59 Intake Total 50 400 Balance 50 400 Physical Exam - Physical Exam General Appearance: WD/WN, alert, no apparent distress EENT: PERRL/EOMI, normal ENT inspection, No scleral icterus (R), No scleral icterus (L), No hearing deficit, No rhinorrhea Neck: non-tender, full range of motion Respiratory: chest non-tender, lungs clear, normal breath sounds Cardiac/Chest: normal peripheral pulses Abdomen: normal bowel sounds, non-tender, soft, No distended Skin: other (less erythema and induration than yesterday. Wound irrigated and repacked with hydrofera blue ready) Extremities: normal range of motion, non-tender, normal inspection ICD10 Worksheet Patient Problems: Problems Problem Status Onset Postoperative wound hematoma Acute Arthrodesis status Acute Lumbar stenosis Acute
[2017-01-03] MEDS: PIPERACILLIN/TAZO 3.375 GM/DEX 50 ML IV SCH ×2 (00:11→06:15)
[2017-01-03] MEDS: oxyCODONE IR 5 MG TAB PO PRN (03:55)
[2017-01-03] MEDS: VANCOMYCIN HCL/NORMAL SALINE 250 ML IV SCH (04:54)
[2017-01-03 07:59] VITALS: BP 123/76; PULSE 77; RESP 15; TEMP 98.4; O2SAT 95
--- NOTE | 2017-01-03 08:35 | NEUSURGPN ---
Assessment/Plan: 71 y/o male with history of L5/S1 TLIF/ALIF with abdominal incision dehiscence that was surgically repaired on 01/[address] Trinidad -Discussed with patient that if LSO brace is rubbing or irritating abdominal incision it is okay for him to hold on the brace at this time. -He will follow up in 2 weeks as scheduled already with our office for a 6 week routine post op visit -Discharge planning per gen surg -Please notify NS with any change in neuro/motor exam -Discussed with Dr. Hill -will sign off at this time. Subjective: Abdominal incision tenderness. Denies any new radicular issues. Objective: NAD A&Ox3 MAEx4 12/09 and equal in BUE and BLE. Posterior incision c/d/i. Anterior abdominal incision with intact dressing. - Physician Discussed Patient with Dr.: Hill Neurosurgery Physical Exam - Vitals, I&O, Labs I and O 01/02/17 01/03/17 01/04/17 05:59 05:59 05:59 Intake Total 350 Balance 350 Intake: IV Infused (ml) 350 Piperacillin/Tazo 3.375 100 gm/Dex 50 ml @ 100 mls/hr IV Q6HRS MARIA DE JESUS Rx#: [id number] Vancomycin HCl/Normal 250 Saline 250 ml @ 250 mls/ hr IV Q12H MARIA DE JESUS Rx#: [id number] Other: Intake Quantity Yes Sufficient Number of Voids Toilet 3 Vital Signs Temp Pulse Resp BP Pulse Ox 36.9 C 77 15 123/76 H 95 01/03/17 07:58 01/03/17 07:58 01/03/17 07:58 01/03/17 07:58 01/03/17 07:58 ICD10 Worksheet Patient Problems: Problems Problem Status Onset Postoperative wound hematoma Acute Arthrodesis status Acute Lumbar stenosis Acute
[2017-01-03] MEDS: NEBIVOLOL HCL 5 MG TAB PO SCH (11:01)
[2017-01-03] MEDS: ATORVASTATIN CALCIUM 20 MG TAB PO SCH (11:01)
[2017-01-03] MEDS: LISINOPRIL 5 MG TAB PO SCH (11:01)
== END 2017-01-03 10:44 | disposition home health service (06) | DRG 920 ==
LOC: F3N 16:24 → OBSVTOIN 01-02 13:29
PROVIDERS: ADMIT Surgery; ATTEND Surgery
PROC: 0J980ZX Drainage of Abdomen Subcutaneous Tissue and Fascia, Open Approach, Diagnostic (ICD-10-PCS; principal; 2017-01-01)
DX: L76.22 Postprocedural hemorrhage of skin and subcutaneous tissue following other procedure (principal); T81.4XXA Infection following a procedure, initial encounter; B95.5 Unspecified streptococcus as the cause of diseases classified elsewhere; I10 Essential (primary) hypertension; E78.5 Hyperlipidemia, unspecified; Z95.5 Presence of coronary angioplasty implant and graft; Z98.1 Arthrodesis status
CPT/HCPCS: 97161-GP; G0378; G8978-GP-CI; G8979-GP-CI; G8980-GP-CI; J0690; J2543; J3370

== ENCOUNTER → 2017-01-09 | Outpatient (CLI) | payer OTHER | LOC: FIMAGING 08:39 | PROVIDERS: ATTEND Physician Assistant Surgical | DX: Z47.89 Encounter for other orthopedic aftercare (principal); M41.86 Other forms of scoliosis, lumbar region; M51.36 Other intervertebral disc degeneration, lumbar region; N20.0 Calculus of kidney; I70.0 Atherosclerosis of aorta; Z98.1 Arthrodesis status ==

== ENCOUNTER 2017-01-19 08:55 | Day surgery (SDC) | payer OTHER ==
[2017-01-19] MEDS ORDERED: cefOXitin SODIUM 2 GM in D5W 100 ML IV ONE (09:04)
[2017-01-19] MEDS ORDERED: LR 1,000 ML IV SCH (09:04)
[2017-01-19] MEDS ORDERED: LIDOCAINE 1% 2 ML INJ ID PRN (09:25)
[2017-01-19] MEDS ORDERED: LR 1,000 ML IV ONE (09:25)
--- NOTE | 2017-01-19 10:11 | PDHPUP ---
History & Physical Update H&P update statement: This history and physical update is based on an assessment of the patient which was completed after admission or registration (within 24 hours), but prior to the surgery/procedure.
[2017-01-19] MEDS ORDERED: BUPIVACAINE 0.5% 30 ML SDV ONE (10:43)
--- NOTE | 2017-01-19 11:24 | PDANEPAE ---
ANE History of Present Illness patient presents for surgery ANE Past Medical History - Cardiovascular History Hx Hypertension: Yes Hx Arrhythmias: Yes Hx Chest Pain: No Hx Coronary Artery / Peripheral Vascular Disease: Yes Hx CHF / Valvular Disease: No Hx Palpitations: No - Pulmonary History Hx COPD: No Hx Asthma/Reactive Airway Disease: No Hx Recent Upper Respiratory Infection: No Hx Oxygen in Use at Home: No - Neurologic History Hx Cerebrovascular Accident: No Hx Seizures: No Hx Dementia: No - Endocrine History Hx Diabetes: No - Renal History Hx Renal Disorders: No - Liver History Hx Hepatic Disorders: No - Neurological & Psychiatric Hx Hx Neurological and Psychiatric Disorders: No - Cancer History Hx Cancer: No - Congenital Disorder History Hx Congenital Disorders: No - GI History Hx Gastrointestinal Disorders: Yes - Chronic Pain History Chronic Pain: Yes (BACK) ANE Review of Systems - Exercise capacity Exercise capacity: >=4 METS METS (RN): 4 METS ANE Patient History - Allergies Allergies/Adverse Reactions: No Known Allergies Allergy (Verified 01/18/17 13:34) - Home Medications Home Medications: Atorvastatin Calcium [Lipitor 20 mg (*)] 11/03/16 [Last Taken 01/19/17 04:00] Lisinopril [Zestril 2.5 mg (*)] 11/03/16 [Last Taken 01/19/17 04:00] Vitamin B Complex [B Complex] 11/03/16 [Last Taken 01/18/17] Cholecalciferol Vit D3 [Vitamin D3 (*)] 01/01/17 [Last Taken 01/18/17] Glucosamine Sulfate [Glucosamine Sulfate 500 MG (*)] 01/01/17 [Last Taken 01/17] Multivit-Min/FA/Lycopen/Lutein [Centrum Silver Tablet] 01/01/17 [Last Taken ] Nebivolol HCl [Bystolic] 01/01/17 [Last Taken 01/19/17 04:00] Bactrim DS 01/18/17 [Last Taken 01/18/17 04:00] oxyCODONE IR [Oxycodone Ir (*)] PRN 01/18/17 [Last Taken 01/14/17] - Smoking Hx Smoking Status: Never smoked - Family Anes Hx Family Hx Anesthesia Complications: none ANE Labs/Vital Signs - Vital Signs Blood Pressure: 129/76 Heart Rate: 72 Respiratory Rate: 16 O2 Sat (%): 97 Height: 175.26 cm Weight: 68.039 kg ANE Physical Exam - Airway Neck exam: FROM Mallampati Score: Class 1 Mouth exam: normal dental/mouth exam - Pulmonary Pulmonary: no respiratory distress - Cardiovascular Cardiovascular: regular rate and rhythym - ASA Status ASA Status: II ANE Anesthesia Plan Anesthesia Plan: general endotracheal anesthesia, GA w LMA (RBA discussed.)
[2017-01-19] MEDS ORDERED: ONDANSETRON 4 MG/2 ML VIAL ONE (11:29)
[2017-01-19] MEDS ORDERED: fentaNYL 100 MCG/2 ML INJ ONE (11:29)
[2017-01-19] MEDS ORDERED: DEXAMETHASONE 4 MG/ML VIAL ONE (11:29)
[2017-01-19] MEDS ORDERED: LIDOCAINE 2% 5 ML SDV ONE (11:29)
[2017-01-19] MEDS ORDERED: PROPOFOL 200 MG/20 ML VIAL ONE (11:29)
[2017-01-19] MEDS ORDERED: CALCIUM CHLORIDE 1 GM/10 ML INJ ONE (11:32)
[2017-01-19] MEDS ORDERED: THROMBIN (BOVINE) 5,000 UNIT VIAL TP ONE (11:32)
[2017-01-19] MEDS ORDERED: epHEDrine SULFATE 10 MG/ML SYR ONE (11:42)
[2017-01-19] MEDS ORDERED: PHENYLEPHRINE HCL 100 MCG/ML SYR ONE (11:43)
[2017-01-19] MEDS ORDERED: NALOXONE HCL 0.4 MG/ML INJ IVP PRN (11:49)
[2017-01-19] MEDS ORDERED: ONDANSETRON 4 MG/2 ML VIAL IVP PRN (11:49)
[2017-01-19] MEDS ORDERED: fentaNYL 100 MCG/2 ML INJ IVP PRN (11:49)
[2017-01-19] MEDS ORDERED: PROMETHAZINE HCL 25 MG/ML INJ IVP PRN (11:49)
[2017-01-19] MEDS ORDERED: HYDROCODONE/APAP 5/325 TAB PO PRN (12:00)
--- NOTE | 2017-01-19 12:38 | POSTOPPROG ---
Post Op Note Date of Operation: 01/19/17 Surgeon: Pradeep Partida Glaciologist: Jordy Robertson Anesthesiologist: Dr Castano Anesthesia: GET(General Endotracheal) Pre-op Diagnosis: abdominal wound Post-op Diagnosis: same Indication: poor healing Procedure: ab wound debridement, drainage of hematoma Findings: hypergranulation, hematoma Inf/Abcess present in the surg proc area at time of surgery?: No Depth: Deep Incisional (Fascial) EBL: 50-100 Drains: [place]
[2017-01-19 12:46] VITALS: PULSE 63; TEMP 97.5
--- NOTE | 2017-01-19 13:15 | POSTANESTH ---
Post Anesthetic Evaluation Cardiovascular Status: Normal, Stable Respiratory Status: Normal, Stable Level of Consciousness/Mental Status: Can Participate in Eval Pain Control: Adequate, Prn Tx Ordered Nausea/Vomiting Control: Adequate, Prn Tx Ordered Complications Possibly Related to Anesthesia: None Noted
[2017-01-19 13:22] VITALS: RESP 14; O2SAT 97
[2017-01-19 13:33] VITALS: BP 98/66
--- NOTE | 2017-01-25 11:34 | GOP ---
[f rep st] OPERATIVE REPORT DATE OF OPERATION: 01/19/2017 SURGEON: Pradeep Partida MD COMMERCIAL ACCOUNT OFFICER: Jordy Robertson PA-C ANESTHESIOLOGIST: Keith Pollard MD PREOPERATIVE DIAGNOSIS: Open abdominal wound with hypertrophic granulation. POSTOPERATIVE DIAGNOSIS: Open abdominal wound with hypertrophic granulation. PROCEDURE PERFORMED: Excisional wound debridement with drainage of subfascial hematoma and wound cl osure. FINDINGS: The patient was found to have a golf ball-size hematoma in the subfascial space. He had hypertrophic granulation tissue related to multiple non-dissolved PDS sutures. DESCRIPTION OF PROCEDURE: The was taken to the operating room, where he received satisfactory gener al endotracheal anesthesia by Dr. Pollard. He was placed in the supine position, prepped and draped i n the usual sterile fashion. Wide excision was done of his suprapubic wound, excising all granulati on tissue down to the fascial level. At the fascia level, a small hematoma was identified and this was drained through the fascial opening. This was all evacuated, washed out thoroughly. A quarter- inch [place] drain was placed in the hematoma cavity and brought out through one corner of the incis ion. The wound was then closed directly with 3-0 nylon mattress sutures. Prior to that, the wound was instilled with some platelet rich plasma which had been prepared for the patient. He tolerated the procedure well. Estimated blood loss was less than 25 cc. There were no complications. He was taken to the recovery room in good condition. /[id number]/MODL
== END 2017-01-19 14:05 | disposition home or self-care (01) ==
LOC: FSGY 08:55
PROVIDERS: ATTEND Surgery
PROC: 0J980ZZ Drainage of Abdomen Subcutaneous Tissue and Fascia, Open Approach (ICD-10-PCS; principal; 2017-01-19 10:45)
PROC: 0JB80ZZ Excision of Abdomen Subcutaneous Tissue and Fascia, Open Approach (ICD-10-PCS; principal; 2017-01-19 10:45)
DX: L76.32 Postprocedural hematoma of skin and subcutaneous tissue following other procedure (principal); T81.4XXA Infection following a procedure, initial encounter; B96.4 Proteus (mirabilis) (morganii) as the cause of diseases classified elsewhere; M43.17 Spondylolisthesis, lumbosacral region; M43.27 Fusion of spine, lumbosacral region; I25.10 Atherosclerotic heart disease of native coronary artery without angina pectoris; E78.5 Hyperlipidemia, unspecified; I10 Essential (primary) hypertension
CPT/HCPCS: J0694; J1100; J2370; J2405; J2704; J3010

== ENCOUNTER → 2017-02-20 | Outpatient (CLI) | payer OTHER | LOC: FIMAGING 12:37 | PROVIDERS: ATTEND Physician Assistant Surgical | DX: Z98.1 Arthrodesis status (principal); M51.36 Other intervertebral disc degeneration, lumbar region ==

== ENCOUNTER → 2017-02-28 | Outpatient (CLI) | payer OTHER | LOC: FIMAGING 07:19 | PROVIDERS: ATTEND Radiology Diagnostic Radiology | DX: I83.813 Varicose veins of bilateral lower extremities with pain (principal) ==

== ENCOUNTER → 2017-05-03 | Outpatient (CLI) | payer OTHER | LOC: FLAB 12:56 | PROVIDERS: ATTEND Physician Assistant Surgical | DX: Z09 Encounter for follow-up examination after completed treatment for conditions other than malignant neoplasm (principal); Z98.1 Arthrodesis status; M48.56XA Collapsed vertebra, not elsewhere classified, lumbar region, initial encounter for fracture ==

== ENCOUNTER → 2017-10-12 | Outpatient (CLI) | payer OTHER | LOC: FIMAGING 09:26 | PROVIDERS: ATTEND Physician Assistant Surgical | DX: Z09 Encounter for follow-up examination after completed treatment for conditions other than malignant neoplasm (principal); Z98.1 Arthrodesis status; M41.86 Other forms of scoliosis, lumbar region; M51.36 Other intervertebral disc degeneration, lumbar region ==

== ENCOUNTER → 2019-01-09 | Outpatient (CLI) | payer OTHER | LOC: FIMAGING 07:28 ==

== ENCOUNTER 2019-01-10 16:14 | Day surgery (SDC) | payer OTHER | END 2019-01-11 10:05 | disposition home or self-care (01) | LOC: FSGY 16:14 ==